=== PATIENT | male | born 1965 | race Caucasian/White ===

== ENCOUNTER 2023-11-04 10:50 | Emergency (ER) | payer OTHER ==
[2023-11-04 10:58] VITALS: BP 113/74; PULSE 60; RESP 18; TEMP 97.3; BMI 36.9
[2023-11-04] MEDS ORDERED: FLUORESCEIN NA 1 EA STRIP ONE (11:43)
[2023-11-04] MEDS ORDERED: TETRACAINE 0.5% OPHTH SOLN 2 ML BOTTLE ONE (11:43)
[2023-11-04] MEDS: TETRACAINE 0.5% HCL 0.6ML DROPPER.BOTTLE OD ONE (12:15)
== END 2023-11-04 13:35 | disposition home or self-care (01) ==
LOC: FER 10:50
DX: T65.891A Toxic effect of other specified substances, accidental (unintentional), initial encounter (principal); H57.13 Ocular pain, bilateral
CPT/HCPCS: 99283-25